=== PATIENT | female | born 1970 | race Caucasian/White ===

== ENCOUNTER 2018-10-16 17:12 | Emergency (ER) | payer SELFPAY ==
[~2018-10-16] VITALS: Ht 154.9 cm; Wt 56.7 kg
[~2018-10-16 17:12] MED LIST: PENI500T PO; TRAM-48 PO
[2018-10-16] MEDS ORDERED: NAPROXEN 500 MG TABLET PO STA (17:19)
[2018-10-16 17:23] VITALS: BP 139/79
[2018-10-16] MEDS ORDERED: HYDROcodone/APAP 5/325MG 1 TAB TABLET PO ONE (17:30)
[2018-10-16] MEDS ORDERED: HYDR-3164 PO (17:34)
[2018-10-16] MEDS ORDERED: AMOX875T PO (17:34)
[2018-10-16] MEDS ORDERED: NAPR500T8 PO (17:34)
--- NOTE | 2018-10-16 17:35 | PHYS DOC ---
Past Medical History Past Medical History: No Pertinent History Past Surgical History: Alcohol Use: None Drug Use: None Adult General Chief Complaint Chief Complaint: DENTAL PROBLEM HPI HPI Patient is a 48 year old female who presents with 10 out of 10 left lower gum dental pain and swelling that began yesterday. Patient denies any fever or trismus. She states she has bad teeth and will follow-up with the dentist as soon as she can get an appointment. Review of Systems Review of Systems Constitutional: Denies fever or chills [] HENT: Reports left lower gum dental pain and swelling. Musculoskeletal: Denies back pain or joint pain [] Integument: Denies rash or skin lesions [] Neurologic: Denies headache, focal weakness or sensory changes [] All other systems were reviewed and found to be within normal limits, except as documented in this note. Current Medications Current Medications Current Medications Medications (Trade) Dose Ordered Sig/Ryne Start Time Stop Time Status Last Admin Dose Admin Acetaminophen/ Hydrocodone Bitart (Lortab 5/325) 2 tab 1X ONCE 10/16/18 17:30 10/16/18 17:31 Naproxen (Naprosyn) 500 mg 1X STAT 10/16/18 17:19 10/16/18 17:21 DC Allergies Allergies Allergies Coded Allergies Type Severity Reaction Last Updated Verified No Known Drug Allergies 04/10/14 No Physical Exam Physical Exam Constitutional: Well developed, well nourished, no acute distress, non-toxic appearance. [] HENT: Normocephalic, atraumatic, bilateral external ears normal, oropharynx moist, no oral exudates, nose normal. [] Left lower gum with small amount of swelling diffusely along teeth #11, 12 and 13. Teeth #14-16 are missing. No fluctuance noted. Scattered infected dental caries noted throughout the remainder of her teeth. Abdomen: Bowel sounds normal, soft, no tenderness, no masses, no pulsatile masses. [] Skin: Warm, dry, no erythema, no rash. [] Back: No tenderness, no CVA tenderness. [] Extremities: No tenderness, no cyanosis, no clubbing, ROM intact, no edema. [] Neurologic: Alert and oriented X 3, normal motor function, normal sensory function, no focal deficits noted. [] Psychologic: Affect normal, judgement normal, mood normal. [] Current Patient Data Vital Signs Vital Signs Date Time Temp Pulse Resp B/P (MAP) Pulse Ox O2 Delivery O2 Flow Rate FiO2 10/16/18 17:23 98.1 99 18 139/79 (99) 100 Room Air 98.1 EKG EKG [] Radiology/Procedures Radiology/Procedures [] Course & Med Decision Making Course & Med Decision Making Pertinent Labs and Imaging studies reviewed. (See chart for details) Patient has dental abscess with no fluctuance to the area. D/c with amoxicillin for 10 days. Follow-up with her dentist in the next 1-2 weeks. Dragon Disclaimer Dragon Disclaimer This electronic medical record was generated, in whole or in part, using a voice recognition dictation system. Departure Departure Impression: Primary Impression: Dental abscess Disposition: 01 HOME, SELF-CARE Condition: STABLE Referrals: NO PCP (PCP) Follow-up with your dentist as soon as possible Patient Instructions: Dental Abscess Additional Instructions: You were evaluated in the emergency room for a dental abscess. Please follow-up with her dentist in the next 1-2 weeks. Complete your antibiotics. Take the rest of the prescribed medications as ordered. Scripts Naproxen (NAPROXEN) 500 Mg Tablet. 1 TAB PO BID, #20 TAB 0 Refills Prov: DARLENE ESTRADA APRN 10/16/18 Hydrocodone/Apap 5-325 (NORCO 5-325 TABLET) 1 Each Tablet 1 TAB PO Q6HRS, #12 TAB Prov: DARLENE ESTRADA APRN 10/16/18 Amoxicillin (AMOXICILLIN) 875 Mg Tablet 1 TAB PO BID, #20 TAB Prov: DARLENE ESTRADA APRN 10/16/18 DARLENE ESTRADA APRN Oct 16, 2018 17:34
== END 2018-10-16 17:40 | disposition home or self-care (01) ==
LOC: ER 17:12
DX: K04.7 Periapical abscess without sinus (principal); K02.9 Dental caries, unspecified; Z98.890 Other specified postprocedural states
CPT/HCPCS: 99283